=== PATIENT | female | born 1945 | race Caucasian/White ===

== ENCOUNTER 2018-04-12 21:25 | Emergency (ER) | payer MEDICARE ==
--- NOTE | 2018-04-12 21:28 | ER Report ---
History and Physical Time Seen By MD: 21:28 HPI/ROS CHIEF COMPLAINT: Right-sided abdominal pain, shortness breath, hypoxia HISTORY OF PRESENT ILLNESS: Patient is a 73-year-old female here with abdominal pain in the right side distribution which started at approximately 1500 when the patient laid down and twisted. Pains worsened since time of onset and is associated with shortness breath, hypoxia. Patient was placed on nonrebreather due to oxygen saturations in the low 80s and given fluid resuscitation due to hypotension with systolic in the low 80s. She was also noted to have a temperature of 100F at time of arrival. Patient reports that she has had a prior appendectomy, total hysterectomy in the past however has no current medical issues and takes no medications. Patient was found to be hypokalemic, hypoxic, hypovolemic at time of evaluation with moderate distention of the abdomen. Bedside ultrasound showed ascites which reportedly is new per patient. Patient was given resuscitation fluids, was placed on nonrebreather oxygen. Sepsis workup was initiated. Last oral intake was approximately 1500. Patient denies trauma, headache, blurred vision, chest pain, rashes. She did have a questionable dark emesis prior to arrival concerning for GI bleed. REVIEW OF SYSTEMS: Constitutional: No fever, + chills. Eyes: No discharge. ENT: No sore throat. Cardiovascular: No chest pain, no palpitations. Respiratory: No cough, no shortness of breath. Gastrointestinal: + right abdominal pain, + vomiting. Genitourinary: + dysuria without hematuria. Musculoskeletal: No back pain. Skin: No rashes. Neurological: No headache. Allergies: Coded Allergies: No Known Drug Allergies (Unverified , 04/12/18) Constitutional Vital Sign - Last 24 Hours 04/12/18 04/12/18 04/12/18 04/12/18 21:36 21:38 21:40 21:55 Pulse 110 B/P (MAP) 88/61 (70) 85/77 (80) 86/74 (78) 04/12/18 04/12/18 04/12/18 04/12/18 22:00 22:01 22:10 22:15 Temp 100.0 Pulse 107 114 122 Resp 35 40 B/P (MAP) 89/71 (77) 89/71 Pulse Ox 72 89 89 O2 Delivery Room Air 04/12/18 04/12/18 04/12/18 /03/25 22:20 22:25 22:30 22:34 Pulse 131 ? Resp 35 B/P (MAP) 83/32 (49) 116/90 (99) Pulse Ox 80 /6/18 7//18 7//18 /03/25 22:35 22:39 22:40 22:45 Pulse ? 49 Resp 33 32 38 B/P (MAP) 70/57 (61) ???/??? (5) Pulse Ox 90 /6/18 /18 //18 /03/25 22:49 22:50 22:55 22:59 Pulse 112 109 Resp 39 40 B/P (MAP) 72/53 (59) 70/58 (62) Pulse Ox 92 //04/12/18//04/12/18 23:00 23:02 23:05 23:10 Pulse 107 111 ??? Resp 35 35 B/P (MAP) 77/67 (70) 77/63 (68) Pulse Ox 85 87 /6/18 /03/25 7//18 04/12/18 23:20 23:25 23:30 23:35 Pulse 104 104 102 Resp 42 40 41 B/P (MAP) 96/74 (81) 113/81 (92) Pulse Ox 91 91 93 04/12/18 04/12/18//18 04/12/18 23:40 23:45 23:47 23:50 Pulse 102 104 106 Resp 33 39 B/P (MAP) 121/98 (106) 125/94 (104) 129/94 (106) Pulse Ox 92 94 94 18 04/13/18/04/24/04/24 23:55 00:00 00:10 00:15 Pulse 105 ??? B/P (MAP) ???/??? (166) ???/??? (1664) 107/79 (88) Pulse Ox 94 95 04/13/18/04/24//18 /04/24 00:20 00:23 00:30 00:45 Pulse 102 103 Resp 30 37 B/P (MAP) 91/46 (61) 108/71 (83) Pulse Ox 94 93 04/13/18 04/13/18 04/13/18 04/13/18 00:58 01:00 01:15 01:20 Pulse 105 101 101 Resp 35 35 B/P (MAP) 104/76 (85) 101/82 (88) 111/79 (90) Pulse Ox 91 94 04/13/18 04/13/18 04/13/18 04/13/18 01:30 01:35 01:40 01:50 Pulse 105 105 Resp 36 38 B/P (MAP) 116/86 (96) 114/83 (93) Pulse Ox 93 92 04/13/18 04/13/18 04/13/18 04/13/18 01:55 02:00 02:05 02:10 Pulse 108 111 Resp 35 43 B/P (MAP) 94/70 (78) 102/85 (91) Pulse Ox 91 88 Physical Exam General Appearance: Patient is ill-appearing and in moderate distress secondary to abdominal pain Eyes: Pupils equal and round no pallor or injection. ENT, Mouth: Mucous membranes are moist. Respiratory: There are no retractions, lungs are clear to auscultation. Cardiovascular: Tachycardic, regular rhythm. Gastrointestinal: Abdomen is mildly distended, diffusely tender, worse in right quadrants Neurological: No focal deficits, AAO x 3 Skin: Warm and dry, no rashes. Musculoskeletal: Neck is supple non tender. Extremities are nontender, nonswollen and have full range of motion. DIFFERENTIAL DIAGNOSIS: After history and physical exam differential diagnosis was considered for abdominal pain including but not limited to appendicitis, cholecystitis, gastritis and urinary tract infection, colonic perforation/ perforated viscus Medical Decision Making Data Points Result Diagram: 04/12/183 04/12/182212 Laboratory Hematology Test 04/12/18 22:13 04/12/18 22:59 04/12/18 23:23 04/13/18 02:13 Red Blood Count 6.14 M/uL (4.17-5.56) Mean Corpuscular Volume 93.3 fL (80.0-96.0) Mean Corpuscular Hemoglobin 30.5 pg (26.0-33.0) Mean Corpuscular Hemoglobin Concent 32.7 g/dL (32.0-36.0) Red Cell Distribution Width 15.2 % (11.5-14.5) Mean Platelet Volume 10.0 fL (7.2-11.1) Neutrophils (%) (Auto) 77.8 % (39.4-72.5) Lymphocytes (%) (Auto) 17.1 % (17.6-49.6) Monocytes (%) (Auto) 4.7 % (4.1-12.4) Eosinophils (%) (Auto) 0.1 % (0.4-6.7) Basophils (%) (Auto) 0.3 % (0.3-1.4) Nucleated RBC Relative Count (auto) 0.2 /100WBC Neutrophils # (Auto) 4.2 K/uL (2.0-7.4) Lymphocytes # (Auto) 0.9 K/uL (1.3-3.6) Monocytes # (Auto) 0.3 K/uL (0.3-1.0) Eosinophils # (Auto) 0.0 K/uL (0.0-0.5) Basophils # (Auto) 0.0 K/uL (0.0-0.1) Nucleated RBC Absolute Count (auto) 0.01 K/uL Prothrombin Time 14.2 seconds (12.0-14.4) Prothromb Time International Ratio 1.10 Activated Partial Thromboplast Time 21 seconds (23-35) Sodium Level 145 mmol/L (137-145) Potassium Level 2.6 mmol/L (3.5-5.0) Chloride Level 92 mmol/L (98-107) Carbon Dioxide Level 17 mmol/L (22-31) Blood Urea Nitrogen 38 mg/dl (7-18) Creatinine 2.70 mg/dl (0.52-1.04) Glomerular Filtration Rate Calc 17.2 Random Glucose 64 mg/dl (75-110) Calcium Level 9.6 mg/dl (8.4-10.2) Total Bilirubin 1.7 mg/dl (0.2-1.3) Aspartate Amino Transf (AST/SGOT) 50 U/L (0-35) Alanine Aminotransferase (ALT/SGPT) 9 U/L (0-56) Alkaline Phosphatase 79 U/L (0-126) Total Protein 7.6 g/dl (6.3-8.2) Albumin 4.5 g/dl (3.5-5.0) Lipase 71 U/L (23-300) Urine Color Stacie Urine Clarity Turbid Urine pH 5.0 pH (4.8-9.5) Urine Specific [place] 1.017 Urine Protein 100 mg/dL (NEGATIVE) Urine Glucose (UA) Negative mg/dL (NEGATIVE) Urine Ketones Negative mg/dL (NEGATIVE) Urine Blood Negative (NEGATIVE) Urine Nitrite Negative (NEGATIVE) Urine Bilirubin Negative (NEGATIVE) Urine Urobilinogen Negative mg/dL (0.2-1.9) Urine Leukocyte Esterase Moderate (NEGATIVE) Urine RBC 40 /HPF (0-2/HPF) Urine WBC 706 /HPF (0-5/HPF) Urine WBC Clumps Many /HPF Urine Squamous Epithelial Cells None /LPF (NONE-FEW) Urine Transitional Epithelial Cells Many /LPF (NONE-FEW) Urine Bacteria Many /HPF (NONE-FEW) Urine Hyaline Casts Many /LPF (NONE-FEW) Urine Granular Casts Many /LPF (NONE) Urine Mucus Few /HPF (NONE-FEW) Lactate 17.2 mmol/L (0.7-2.1) Venous Blood pH 7.09 (7.31-7.41) Venous Blood Partial Pressure CO2 53 mmHg Venous Blood Partial Pressure O2 < 35 mmHg Venous Blood HCO3 16 mmol/L Venous Blood Oxygen Saturation 46 % Venous Blood Base Excess -14 mmol/L Test 04/13/18 03:34 Blood Gas Puncture Site Left radial Blood Gas Patient Temperature 37.1 DEGREES Arterial Blood pH 7.04 (7.35-7.45) Arterial Blood Partial Pressure CO2 68 mmHg (32-37) Arterial Blood Partial Pressure O2 130 mmHg (60-80) Arterial Blood HCO3 18 mmol/L (20-26) Arterial Blood Oxygen Saturation 129 % (92-100) Arterial Blood Base Excess -12.0 mmol/L Wayne Test Acceptable Oxygen Liters/Minute 100 Chemistry Test 04/12/18 22:13 04/12/18 22:59 04/12/18 23:23 04/13/18 02:13 White Blood Count 5.5 k/uL (4.5-11.0) Red Blood Count 6.14 M/uL (4.17-5.56) Hemoglobin 18.7 g/dL (12.0-16.0) Hematocrit 57.3 % (34.0-47.0) Mean Corpuscular Volume 93.3 fL (80.0-96.0) Mean Corpuscular Hemoglobin 30.5 pg (26.0-33.0) Mean Corpuscular Hemoglobin Concent 32.7 g/dL (32.0-36.0) Red Cell Distribution Width 15.2 % (11.5-14.5) Platelet Count 198 K/uL (150-450) Mean Platelet Volume 10.0 fL (7.2-11.1) Neutrophils (%) (Auto) 77.8 % (39.4-72.5) Lymphocytes (%) (Auto) 17.1 % (17.6-49.6) Monocytes (%) (Auto) 4.7 % (4.1-12.4) Eosinophils (%) (Auto) 0.1 % (0.4-6.7) Basophils (%) (Auto) 0.3 % (0.3-1.4) Nucleated RBC Relative Count (auto) 0.2 /100WBC Neutrophils # (Auto) 4.2 K/uL (2.0-7.4) Lymphocytes # (Auto) 0.9 K/uL (1.3-3.6) Monocytes # (Auto) 0.3 K/uL (0.3-1.0) Eosinophils # (Auto) 0.0 K/uL (0.0-0.5) Basophils # (Auto) 0.0 K/uL (0.0-0.1) Nucleated RBC Absolute Count (auto) 0.01 K/uL Prothrombin Time 14.2 seconds (12.0-14.4) Prothromb Time International Ratio 1.10 Activated Partial Thromboplast Time 21 seconds (23-35) Glomerular Filtration Rate Calc 17.2 Calcium Level 9.6 mg/dl (8.4-10.2) Total Bilirubin 1.7 mg/dl (0.2-1.3) Aspartate Amino Transf (AST/SGOT) 50 U/L (0-35) Alanine Aminotransferase (ALT/SGPT) 9 U/L (0-56) Alkaline Phosphatase 79 U/L (0-126) Total Protein 7.6 g/dl (6.3-8.2) Albumin 4.5 g/dl (3.5-5.0) Lipase 71 U/L (23-300) Urine Color Stacie Urine Clarity Turbid Urine pH 5.0 pH (4.8-9.5) Urine Specific [place] 1.017 Urine Protein 100 mg/dL (NEGATIVE) Urine Glucose (UA) Negative mg/dL (NEGATIVE) Urine Ketones Negative mg/dL (NEGATIVE) Urine Blood Negative (NEGATIVE) Urine Nitrite Negative (NEGATIVE) Urine Bilirubin Negative (NEGATIVE) Urine Urobilinogen Negative mg/dL (0.2-1.9) Urine Leukocyte Esterase Moderate (NEGATIVE) Urine RBC 40 /HPF (0-2/HPF) Urine WBC 706 /HPF (0-5/HPF) Urine WBC Clumps Many /HPF Urine Squamous Epithelial Cells None /LPF (NONE-FEW) Urine Transitional Epithelial Cells Many /LPF (NONE-FEW) Urine Bacteria Many /HPF (NONE-FEW) Urine Hyaline Casts Many /LPF (NONE-FEW) Urine Granular Casts Many /LPF (NONE) Urine Mucus Few /HPF (NONE-FEW) Lactate 17.2 mmol/L (0.7-2.1) Venous Blood pH 7.09 (7.31-7.41) Venous Blood Partial Pressure CO2 53 mmHg Venous Blood Partial Pressure O2 < 35 mmHg Venous Blood HCO3 16 mmol/L Venous Blood Oxygen Saturation 46 % Venous Blood Base Excess -14 mmol/L Test 04/13/18 03:34 Blood Gas Puncture Site Left radial Blood Gas Patient Temperature 37.1 DEGREES Arterial Blood pH 7.04 (7.35-7.45) Arterial Blood Partial Pressure CO2 68 mmHg (32-37) Arterial Blood Partial Pressure O2 130 mmHg (60-80) Arterial Blood HCO3 18 mmol/L (20-26) Arterial Blood Oxygen Saturation 129 % (92-100) Arterial Blood Base Excess -12.0 mmol/L Wayne Test Acceptable Oxygen Liters/Minute 100 Coagulation Test 04/12/18 22:13 Prothrombin Time 14.2 seconds Prothromb Time International Ratio 1.10 Activated Partial Thromboplast Time 21 seconds Urinalysis Test 04/12/18 22:59 Urine Color Stacie Urine Clarity Turbid Urine pH 5.0 pH (4.8-9.5) Urine Specific [place] 1.017 Urine Protein 100 mg/dL (NEGATIVE) Urine Glucose (UA) Negative mg/dL (NEGATIVE) Urine Ketones Negative mg/dL (NEGATIVE) Urine Blood Negative (NEGATIVE) Urine Nitrite Negative (NEGATIVE) Urine Bilirubin Negative (NEGATIVE) Urine Urobilinogen Negative mg/dL (0.2-1.9) Urine Leukocyte Esterase Moderate (NEGATIVE) Urine RBC 40 /HPF (0-2/HPF) Urine WBC 706 /HPF (0-5/HPF) Urine WBC Clumps Many /HPF Urine Squamous Epithelial Cells None /LPF (NONE-FEW) Urine Transitional Epithelial Cells Many /LPF (NONE-FEW) Urine Bacteria Many /HPF (NONE-FEW) Urine Hyaline Casts Many /LPF (NONE-FEW) Urine Granular Casts Many /LPF (NONE) Urine Mucus Few /HPF (NONE-FEW) Microbiology Microbiology Date/Time Source Procedure Growth Status 04/12/18 22:25 Blood Peripheral Draw Blood Culture - Preliminary NO GROWTH AFTER 4 DAYS, REINCUBATED Resulted 04/12/18 22:13 Blood Blood Culture - Preliminary NO GROWTH AFTER 4 DAYS, REINCUBATED Resulted 04/12/18 22:59 Cath Urine Urine Culture - Final Escherichia Coli Complete EKG/Imaging EKG Interpretation 12 lead EKG: Sinus tachycardia, rate 109, QTc 530 Rhythm: Sinus tachycardia [place]: normal QRS: normal ST segments: normal Monitor Interpretation: Sinus Tachycardia Imaging ABDOMEN/PELVIS W/O CONTRAST HISTORY: Abdominal pain. Shortness of breath and hypoxia. TECHNIQUE: Axial images were obtained through the abdomen and pelvis without intravenous contrast . One of the following dose optimization techniques was utilized in the performance of this exam: automated exposure control; adjustment of the mA and/or kv according to patient size; or use of iterative reconstruction technique. Specific details can be referenced in the facility's radiology CT exam operational policy. CONTRAST: None COMPARISON: None. FINDINGS: Visualized lung bases: Very large hiatal hernia which is filled with fluid above and below the diaphragm. Extensive consolidation of the left lung with mild consolidation of the right lower lobe. Scattered nodular opacities within the right lung as well. Hepatobiliary: Dilated gallbladder. 1.6 x 1.6 cm hepatic cyst. Spleen: Negative. Adrenals: Negative. Pancreas: Negative. Kidneys/ureters/bladder: [place] catheter within urinary bladder. Bowel/peritoneum/mesentery: Very large hiatal hernia above and below the diaphragm which is filled with fluid. Large amount of free air. Extensive colonic diverticulosis especially distally. Normal appendix. Small amount of ascites. Vessels: Mild arterial calcifications. Lymph nodes: Negative. Pelvic genitourinary: Hysterectomy Bones/body wall: Scattered degenerative changes. Small bilateral inguinal hernias, right greater than left. The right hernia contains ascites. Other findings: None significant IMPRESSION: 1. Large amount of free intraperitoneal air with small amount of ascites. There is a very large hiatal hernia with fluid-filled stomach above and below the diaphragm. There is also extensive colonic diverticulosis especially distally. Either of these could be the perforation site. Recommend surgical consultation. CHEST SINGLE AP HISTORY: Shortness of breath. Hypoxia. COMPARISON: None FINDINGS: Cardiomediastinal contours: Normal Lungs and pleura: Large hiatal hernia. Extensive consolidation within the left lung. Mild right basilar airspace disease. No pneumothorax. Bones/soft tissues: Normal Other findings: None significant IMPRESSION: 1. Large hiatal hernia. Extensive left and mild right airspace disease. This may be on the basis of compressive atelectasis although pneumonia or aspiration also possible. ED Course/Re-evaluation Clinical Indication for ER IV: Hydration, Hypotention, IV Access ED Course Patient is a 73-year-old female here with abdominal pain in the right side distribution which started at approximately 1500 when the patient laid down and twisted. Pain has worsened since time of onset and is associated with shortness breath, hypoxia. Patient was placed on nonrebreather due to oxygen saturations in the low 80s and given fluid resuscitation due to hypotension with systolic in the low 80s. She was also noted to have a temperature of 100F at time of arrival. Patient reports that she has had a prior appendectomy, total hysterectomy in the past however has no current medical issues and takes no medications. Patient was found to be hypokalemic, hypoxic, hypovolemic at time of evaluation with moderate distention of the abdomen. Bedside ultrasound showed ascites which reportedly is new per patient. Patient was given resuscitation fluids, was placed on nonrebreather oxygen. Sepsis workup was initiated. Last oral intake was approximately 1500. Patient denies trauma, headache, blurred vision, chest pain, rashes. She did have a questionable dark emesis prior to arrival concerning for GI bleed. Bedside ultrasound FAST exam was performed and showed intermittent free fluid in the abdomen. Initial LA was 23, repeat was 17. Potassium was 2.6, oral repletion of 40 meq was given. Patient initially was hypotensive and responded well to 2 L NS with SBP in 120's/80's on repeat VS. Patient mentation was appropriate throughout course of treatment. She was found to have a UA which was initially suspected as the source of infection but due to abdominal pain/discomfort and findings on bedside ultrasound, CT AP (w/out contrast due to JONATHAN) was completed and showed large amounts of free air in the abdomen and ascites were noted which is consistent with perforated viscus and fecal materials in the peritoneum as well as large hiatal hernia. See official radiology report. Patient was given vancomycin and zosyn for empiric antimicrobial coverage after blood cultures were collected. Protonix loading bolus was given due to reports of hematemesis. I discussed the patient with Dr. De Leon from [facility] who accepted the patient and contacted flight crew for transfer. NG tube was placed for gastric compression however shortly after, the patient developed increased respiratory distress with audible rhonchi which was concerning for aspiration in the setting of a large hiatal hernia. [facility] flight crew arrived shortly after the respiratory distress began and recommended going ahead with intubation to secure the airway as the patient had increasing difficulty breathing in spite of being on a nonrebreather. Flight crew intubated the patient using a glydescope and RSI with ketamine and rocuronium however the patient lost palpable pulses shortly after intubation prompting cardiopulmonary resuscitation. See separate nursing note for further details about the resuscitation efforts and timeline. ROSC was achieved and the patient was flown to [facility] with pressor support. I updated Dr. Salgado regarding the patient's condition and deterioration. He voiced understanding. Re-evaluation 04/13/2018 1:41:12 am I reevaluated the patient and updated her regarding her condition and the plan for transfer. Patient was mentating appropriately and agreed with plan. Decision to Disposition Date: Apr 13, 2018 Decision to Disposition Time: 01:12 Critical Care Time 90 minutes Transfer Facility [facility] VIA [facility] Depart Departure Latest Vital Signs Vital Signs Date Time Temp Pulse Resp B/P (MAP) Pulse Ox O2 Delivery O2 Flow Rate FiO2 04/13/18 02:10 111 43 88 04/13/18 02:05 102/85 (91) 04/12/18 22:01 100.0 Room Air Impression: Primary Impression: Perforated viscus Additional Impressions: Hypotension Hypoxemia Urinary tract infection Condition: Critical Disposition: [facility] TO [facility] (transferred [facility]) Problem Qualifiers SATISH OLVERA DO Apr 12, 2018 21:28
[2018-04-12] MEDS ORDERED: NS(*) 0.9% 1000 ML BAG 1,000 ML IV ONE ×2 (21:47→23:25)
[2018-04-12] MEDS ORDERED: fentaNYL CITR 100 MCG/2 ML AMP IVP ONE (21:50)
[2018-04-12] MEDS ORDERED: MAG HYD/AL HYD/SIMETH 30ML UDC PO ONE (21:50)
[2018-04-12] MEDS ORDERED: LIDOCAINE 2% VISC SLN 15ML UDC PO ONE (21:50)
[2018-04-12] MEDS ORDERED: ONDANSETRON 4 MG/2 ML VIAL IVP ONE (21:50)
[2018-04-12] MEDS ORDERED: ATRO/SCOPOL/HYOSCY/PB 5 ML ELX PO ONE (21:50)
--- NOTE | 2018-04-12 22:09 | EKG ---
FACILITY: [facility] PATIENT NAME: SEBAS RODRIGUEZ : [id number] MR: [id number] V: [id number] EXAM DATE: ORDERING PHYSICIAN: SATISH OLVERA TECHNOLOGIST: Test Reason : Blood Pressure : / mmHG Vent. Rate : 109 BPM Atrial Rate : 109 BPM P-R Int : 144 ms QRS Dur : 072 ms QT Int : 394 ms P-R-T Axes : 027 -10 037 degrees QTc Int : 530 ms Sinus tachycardia Septal infarct , age undetermined Abnormal ECG No previous ECGs available Confirmed by LEONARDO SALAS ([id number]) on 04/13/2018 6:25:02 AM Referred By: Confirmed By:LEONARDO SALAS
[2018-04-12] MEDS ORDERED: VANCOMYCIN 1 GM ADDVIAL 1 GM in NS(*) 0.9% 250 ML ADDVAN BAG 250 ML IVPB ONE (22:10)
[2018-04-12] MEDS ORDERED: ACETAMINOPHEN 500 MG TAB PO ONE (22:10)
[2018-04-12] MEDS ORDERED: PIPERACILLIN/TAZO*3.375GM VIAL 3.375 GM in NS(*) 0.9% 100 ML ADDVANT BAG 100 ML IVPB ONE (22:10)
[2018-04-12 22:23] LABS: PLATELET COUNT, AUTOMATED 198 K/uL (150-450)
[2018-04-12 22:32] LABS: INR 1.1
[2018-04-12] MEDS ORDERED: POTASSIUM CHL PWDR 20 MEQ PKT PO ONE (22:55)
[2018-04-12] MEDS ORDERED: IOPAMIDOL 76% 100 ML INFUS BTL 0 ML ONE (23:00)
[2018-04-12] MEDS ORDERED: PANTOPRAZOLE SOD(*)40 MG VIAL 80 MG in NS(*) 0.9% 100 ML BAG 100 ML IVPB ONE (23:25)
--- NOTE | 2018-04-13 00:33 | RADIOLOGY IMAGING REPORT ---
FACILITY: [facility] [place] PATIENT NAME: Keara Camacho : 1945 MR: [id number] V: [id number] EXAM DATE: ORDERING PHYSICIAN: SATISH OLVERA TECHNOLOGIST: Location: [facility] [place] Patient: Keara Camacho : 1945 Visit/Account:[id number] Date of Sevice: 04/12/2018 CHEST SINGLE AP HISTORY: Shortness of breath. Hypoxia. COMPARISON: None FINDINGS: Cardiomediastinal contours: Normal Lungs and pleura: Large hiatal hernia. Extensive consolidation within the left lung. Mild right basil ar airspace disease. No pneumothorax. Bones/soft tissues: Normal Other findings: None significant IMPRESSION: 1. Large hiatal hernia. Extensive left and mild right airspace disease. This may be on the basis of c ompressive atelectasis although pneumonia or aspiration also possible. Report Dictated By: Rodrigo Gooden MD at 04/13/2018 12:27 AM Report E-Signed By: Rodrigo Gooden MD at 04/13/2018 12:29 AM WSN:[id number]
--- NOTE | 2018-04-13 00:46 | RADIOLOGY IMAGING REPORT ---
FACILITY: [facility] [place] PATIENT NAME: Keara Camacho : 1945 MR: [id number] V: [id number] EXAM DATE: ORDERING PHYSICIAN: SATISH OLVERA TECHNOLOGIST: Location: [facility] Patient: Keara Camacho : 1945 Visit/Account:[id number] Date of Sevice: 04/12/2018 ABDOMEN/PELVIS W/O CONTRAST HISTORY: Abdominal pain. Shortness of breath and hypoxia. TECHNIQUE: Axial images were obtained through the abdomen and pelvis without intravenous contrast . One of the following dose optimization techniques was utilized in the performance of this exam: autom ated exposure control; adjustment of the mA and/or kv according to patient size; or use of iterative reconstruction technique. Specific details can be referenced in the facility's radiology CT exam oper ational policy. CONTRAST: None COMPARISON: None. FINDINGS: Visualized lung bases: Very large hiatal hernia which is filled with fluid above and below the diaph ragm. Extensive consolidation of the left lung with mild consolidation of the right lower lobe. Scatt ered nodular opacities within the right lung as well. Hepatobiliary: Dilated gallbladder. 1.6 x 1.6 cm hepatic cyst. Spleen: Negative. Adrenals: Negative. Pancreas: Negative. Kidneys/ureters/bladder: [place] catheter within urinary bladder. Bowel/peritoneum/mesentery: Very large hiatal hernia above and below the diaphragm which is filled w ith fluid. Large amount of free air. Extensive colonic diverticulosis especially distally. Normal martinez endix. Small amount of ascites. Vessels: Mild arterial calcifications. Lymph nodes: Negative. Pelvic genitourinary: Hysterectomy Bones/body wall: Scattered degenerative changes. Small bilateral inguinal hernias, right greater justin n left. The right hernia contains ascites. Other findings: None significant IMPRESSION: 1. Large amount of free intraperitoneal air with small amount of ascites. There is a very large hiata l hernia with fluid-filled stomach above and below the diaphragm. There is also extensive colonic div erticulosis especially distally. Either of these could be the perforation site. Recommend surgical co nsultation. Results were called to SATISH OLVERA at 04/13/2018 12:42 AM. Report Dictated By: Rodrigo Gooden MD at 04/13/2018 12:29 AM Report E-Signed By: Rodrigo Gooden MD at 04/13/2018 12:42 AM WSN:[id number]
[2018-04-13] MEDS ORDERED: NS(*) 0.9% 1000 ML BAG 1,000 ML IV ONE (01:00)
[2018-04-13] MEDS ORDERED: DIPHTH/TETANUS/ACEL. PERTUSSIS IM ONLY ONE (01:30)
[2018-04-13] MEDS ORDERED: NS(*) 0.9% 1000 ML BAG 1,000 ML IV PRN (02:00)
[2018-04-13 02:05] VITALS: BP 102/85
[2018-04-13] MEDS ORDERED: ONDANSETRON 4 MG/2 ML VIAL ONE (02:41)
[2018-04-13] MEDS ORDERED: LEVOPHED KIT (*) 1 IVSOL 0 KIT IV ONE (02:47)
[2018-04-13] MEDS ORDERED: SODIUM BICAR(* 8.4% 50 ML SYR 50 ML SYR ONE (03:16)
--- NOTE | 2018-04-13 04:39 | RADIOLOGY IMAGING REPORT ---
FACILITY: [facility] PATIENT NAME: Keara Camacho : 1945 MR: [id number] V: [id number] EXAM DATE: ORDERING PHYSICIAN: SATISH OLVERA TECHNOLOGIST: Location: [facility] Patient: Keara Camacho : 1945 Visit/Account:[id number] Date of Sevice: 04/13/2018 CHEST SINGLE AP HISTORY: NG tube placement COMPARISON: Chest x-ray 04/13/2018 FINDINGS: Cardiomediastinal contours: Enlarged but unchanged. Lungs and pleura: Extensive left and mild right lung consolidation. No pneumothorax Bones/soft tissues: Normal Other findings: Nasogastric tube with its tip at a large hiatal hernia. IMPRESSION: 1. New nasogastric tube with its tip at a large hiatal hernia at the lower chest. 2. Stable extensive left and mild right basilar consolidation. Report Dictated By: Rodrigo Gooden MD at 04/13/2018 4:34 AM Report E-Signed By: Rodrigo Gooden MD at 04/13/2018 4:35 AM WSN:[id number]
[2018-04-13] MEDS ORDERED: NOREPINEPH BITAR 4 MG/4 ML AMP ONE (06:10)
[2018-04-13] MEDS ORDERED: D5W(*) 250 ML BAG 250 ML ONE (06:11)
[2018-04-13] MEDS ORDERED: ONDANSETRON 4 MG/2 ML VIAL IVP ONE (20:30)
== END 2018-04-13 03:56 | disposition short-term general hospital (02) ==
LOC: ER 21:29
DX: K63.1 Perforation of intestine (nontraumatic) (principal); R06.02 Shortness of breath; I95.9 Hypotension, unspecified; R09.02 Hypoxemia; N39.0 Urinary tract infection, site not specified; R18.8 Other ascites; E87.6 Hypokalemia; E86.1 Hypovolemia; K44.9 Diaphragmatic hernia without obstruction or gangrene; Z23 Encounter for immunization
CPT/HCPCS: 36415; 71045; 74176; 81001; 82803; 83605; 83690; 85025; 85610; 85730; 87040; 87077; 87088; 87186; 90471; 90715; 93005; 96361; 96365; 96367; 96375; 99285; A9270; C1758; C9113; J0171; J2405; J2543; J3370; J7030; J7050; 82040; 82247; 82310; 82374; 82435; 82565; 82947; 84075; 84132; 84155; 84295; 84450; 84460; 84520; Q9967

== ENCOUNTER → 2018-04-13 | Outpatient (REF) | LOC: AMB 01:33 | PROVIDERS: ATTEND Nurse Practitioner | DX: Z76.89 Persons encountering health services in other specified circumstances (principal) ==